=== PATIENT | male | born 1945 | race African-American/Black ===

== ENCOUNTER 2019-01-30 09:58 | Emergency (ER) | payer OTHER ==
[~2019-01-30] VITALS: Ht 170.2 cm; Wt 60.0 kg
[~2019-01-30 09:58] MED LIST: IBUP200C11 PO
[2019-01-30 10:12] VITALS: Ht 170.2 cm; Wt 60.0 kg
[2019-01-30] MEDS ORDERED: SOD CHLORIDE 0.9% 1,000 ML IV STA (10:13)
[2019-01-30 12:05] VITALS: BP 130/76; PULSE 73; RESP 16
== END 2019-01-30 12:06 | disposition home or self-care (01) ==
LOC: E/R 09:58
DX: R53.1 Weakness (principal); R40.2142 Coma scale, eyes open, spontaneous, at arrival to emergency department; R40.2362 Coma scale, best motor response, obeys commands, at arrival to emergency department; R40.2252 Coma scale, best verbal response, oriented, at arrival to emergency department; I10 Essential (primary) hypertension
CPT/HCPCS: 36415; 71045; 80048; 84484; 85025; 93005; 99285; J7030